=== PATIENT | female | born 1960 | race Caucasian/White ===

== ENCOUNTER 2019-06-23 18:16 | Inpatient (IN) ==
--- NOTE | 2019-06-23 18:59 | Emergency Department Note ---
Seizure HPI - General Chief Complaint: Seizure Stated Complaint: seizures Time Seen by Provider: 06/23/19 18:57 Source: patient Mode of arrival: ambulatory Limitations: no limitations - History of Present Illness HPI Narrative: Patient is brought in by ambulance with history of seizures home. She does have a history of seizure disorder according the patient and her . According to old records however seizure has never been documented. She may have pseudoseizures or stress-induced seizures. She does state that when she gets stressed that she has extra seizures. Today she was on the computer she was standing up from a chair and she found herself in another chair when she woke up. Came in and called the EMS. And she was complaining of left-sided hip pain. She is also complaining of right-sided hip pain but she is moving the right leg very well up. Was unable to stand and walk for EMS and she was given fentanyl by the medics en route to the hospital. Currently she does have a history of seizure disorder, she has breakthrough seizures associated with stress and she believes she fell on a hard chair. Either way the found her in the chair complaining of hip pain. - Related Data Home Medications Medication Instructions Recorded Confirmed CBD Oil 1 appful .ROUTE DAILY 05/20/17 06/23/19 senna leaves (bulk) 1 each PO PRN PRN 02/12/18 06/23/19 thyroid (pork) 60 mg tablet 75 mg PO QDAY 05/29/19 06/23/19 Cetirizine HCl [Zyrtec] 10 mg PO DAILY 06/23/19 06/23/19 PHENobarbital [Phenobarbital] 110 mg PO ONCE 06/23/19 06/23/19 Previous Rx's Medication Instructions Recorded albuterol sulfate 90 mcg/actuation 2 puff INHALATION Q6H PRN #1 each 03/10/18 breath activated powder inhaler albuterol sulfate HFA 90 2 puff INHALATION Q6H PRN #8.5 g 05/29/19 mcg/actuation aerosol inhaler Allergies Allergy/AdvReac Type Severity Reaction Status Date / Time aspirin Allergy Unknown Wheezing Verified 06/23/19 18:22 [place] [CORN] Allergy Unknown WHEEZING Verified 06/23/19 18:22 hydrocodone Allergy Unknown Verified 06/23/19 18:22 thyroid, pork Allergy Unknown Verified 09/04/19 18:22 [From [place] Thyroid] NSAIDS (Non-Steroidal AdvReac Mild AFTER 3-4 Verified 06/23/19 18:22 Anti-Inflamma DAYS, [NSAIDS] AFFECTS ASTHMA APPLES Allergy Unknown WHEEZING Uncoded 09/21/18 10:37 From GARLIC OIL Allergy Unknown WHEEZING Uncoded 09/21/18 10:37 STRAWBERRIES Allergy Unknown UNKNOWN Uncoded 09/21/18 10:37 TROUT Allergy Unknown WHEEZING Uncoded 09/21/18 10:37 TUNA Allergy Unknown WHEEZING Uncoded 09/21/18 10:37 Review of Systems All systems ED: reviewed and negative except as stated. Constitutional: Denies: fever, chills Eyes: Denies: eye pain ENT ED: Reports: other (she did bite the left side of her tongue.). Denies: ear pain, throat pain, dental pain Cardiovascular: Denies: palpitations, dyspnea on exertion Respiratory: Denies: shortness of breath Gastrointestinal: Denies: vomiting Musculoskeletal: Reports: other (left-sided hip pain also an abrasion over the left elbow.) Integumentary: Denies: rash Neurological: Reports: weakness. Denies: headache Past Medical History - Past Medical History Source: nursing notes reviewed Medical history: Reports: asthma, cancer (throat), migraine, seizures, thyroid disease Psychiatric history: Reports: anxiety MOLD CHANGER history: Reports: non-contributory Surgical history ED: Reports: hysterectomy (Has ovaries), orthopedic, other Family history: Reports: non-contributory - Social History smoking status: Never smoker Alcohol use: Reports: None Drug use: Reports: marijuana ("medical marijuana oils daily") Physical Exam Limitations: no limitations General appearance: alert, grimacing, in no apparent distress Head: atraumatic, normocephalic, normal inspection Eye: Present: normal appearance, PERRL, EOMI. Absent: conjunctival injection, nystagmus ENT: Present: normal exam, normal oropharynx, mucous membranes moist, TM's nor mal bilaterally, normal external ear exam Neck: Present: normal inspection, full ROM, trachea midline. Absent: tenderness, meningismus, lymphadenopathy, thyromegaly Chest: Present: normal inspection, symmetric chest wall rise. Absent: tenderness, rash Respiratory: Present: normal lung sounds bilaterally. Absent: respiratory distress, rales/crackles, wheezes, stridor, accessory muscle use Cardiovascular: Present: regular rate, normal rhythm, normal heart sounds Abdominal: Present: soft, normal bowel sounds. Absent: distention, tenderness, guarding, rebound Extremities: Present: normal inspection, full ROM, tenderness, other (she can lift the left leg but is complaining of pain to the left medial groin region, also left lateral trochanter.). Absent: joint swelling, cyanosis, clubbing Back: Present: normal inspection. Absent: CVA tenderness (R), CVA tenderness (L), L-S tenderness, muscle spasm, vertebral tenderness Neurological: Present: alert, oriented X3, CN II-XII intact Psychiatric: Present: normal affect Skin: Present: warm, dry, normal color. Absent: rash, cyanosis, diaphoresis, erythema Course - Reevaluation(s) Reevaluation #1: Culture was verified by CT scanning of. At this point she will be admitted by Dr. Worley. She did not have an acetabular fracture. Dr. Nino was contacted for consult. Vital Signs Temperature 98.4 F 06/23/19 18:17 Pulse Rate 60 06/23/19 18:17 Respiratory Rate 18 06/23/19 18:17 Pulse Oximetry (%) 94 06/23/19 18:17 Temperature 98.4 F 06/23/19 18:17 Pulse Rate 84 06/23/19 22:09 Respiratory Rate 21 06/23/19 22:09 Blood Pressure 119/80 06/23/19 22:01 Pulse Oximetry (%) 100 06/23/19 22:09 Seizure - MDM Narrative Medical decision making narrative: X-rays reviewed and she does appear to have a fracture of the superior pubic ramus on the right also inferior pubic ramus on the left. We did order a CT scan, consultation with Dr. Worley for hospitalization, observation at this point we will also contact the orthopedic doctor environmental conflict manager Dr. Nino regarding this fracture. CT scan was recommended by the stat read radiologist - Lab Data Lab results reviewed: Yes I reviewed the patient's lab results. Result diagrams: 06/23/19 19:12 06/23/19 19:12 Lab Results 06/23/19 06/23/19 06/23/19 Range/Units 19:12 19:12 20:22 WBC 10.9 (4.5-11.0) K/mcL RBC 4.20 (4.00-5.20) M/mcL Hgb 12.9 (12.0-15.0) g/dL Hct 37.9 (36.0-48.0) % MCV 90.1 (80.0-100.0) fL MCH 30.6 (26.0-34.0) pg MCHC 34.0 (31.0-36.0) g/dL RDW 13.3 (11.5-14.5) % Plt Count 219 (140-440) K/mcL MPV 8.2 (7.4-10.4) fL Gran % 86.1 H (38.0-78.0) % Lymph % (Auto) 5.8 L (15.5-49.0) % Dukes % (Auto) 5.4 (1.0-12.0) % Eos % (Auto) 2.3 (0.0-7.0) % Baso % (Auto) 0.4 (0.0-2.0) % Gran # 9.4 H (1.8-8.0) K/mcL Lymph # (Auto) 0.6 L (1.5-4.8) K/mcL Dukes # (Auto) 0.6 (0.1-0.9) K/mcL Eos # (Auto) 0.3 (0.0-0.7) K/mcL Baso # (Auto) 0 (0.0-0.3) K/mcL Sodium 141 (133-145) mmol/L Potassium 3.8 (3.3-5.1) mmol/L Chloride 103 (96-108) mmol/L Carbon Dioxide 25 (22-30) mmol/L Anion Gap 13.0 (8-16) BUN 11 (8-23) mg/dl Creatinine 0.7 (0.6-1.1) mg/dl GFR Calculation 94 Glucose 117 H (70-105) mg/dL Calcium 9.4 (8.6-10.4) mg/dl Magnesium 1.8 (1.6-2.5) mg/dL Total Bilirubin 0.3 (0.0-1.0) mg/dL AST 20 (0-37) U/l ALT 15 (0-40) U/l Alkaline Phosphatase 60 (39-117) U/L C-Reactive Protein < 0.3 (0.0-0.8) mg/dl Total Protein 7.0 (5.9-8.4) gm/dL Albumin 4.4 (3.2-5.2) gm/dL Globulin 2.6 (2.2-3.7) gm/dL Albumin/Globulin Ratio 1.7 (1.0-2.3) Urine Color Yellow Urine Appearance Clear Urine pH 7.0 (5.0-9.0) Ur Specific [place] 1.013 (1.000-1.035) Urine Protein Neg (NEG) mg/dL Urine Glucose (UA) Negative (NEG) mg/dL Urine Ketones Neg (NEG) mg/dL Urine Occult Blood Neg (<0.03) mg/dL Urine Nitrate Neg (NEG) Urine Bilirubin Neg (NEG) mg/dL Urine Urobilinogen Neg (NEG) mg/dL Ur Leukocyte Esterase Neg (NEG) /uL Phenobarbital 17.6 ug/mL - Radiology Data Radiology results reviewed: Yes I reviewed the patient's radiology results. Disposition Pt seen by DISTILLERY MILLER HELPER/PA only: No Clinical Impression: Bilateral pubic rami fractures Disposition: Xfer As Inpt ([facility]) Condition: Fair Referrals: No,PCP [Primary Care Provider] -
[2019-06-23] MEDS ORDERED: LACTATED RINGERS 1,000 ML IV ONE (19:01)
[2019-06-23] MEDS ORDERED: HYDROmorphone 2 MG/ML VIAL IV ONE ×3 (19:02→21:55)
[2019-06-23] MEDS ORDERED: LORazepam 2 MG/ML VIAL IV ONE (19:02)
[2019-06-23 19:53] LABS: Basophils # (Auto) 0 K/mcL (0.0-0.3); Basophils % (Auto) 0.4 % (0.0-2.0); Eosinophils # (Auto) 0.3 K/mcL (0.0-0.7); Eosinophils % (Auto) 2.3 % (0.0-7.0); Granulocytes % (Auto) 86.1 % (38.0-78.0); Hematocrit 37.9 % (36.0-48.0); Hemoglobin 12.9 g/dL (12.0-15.0); Lymphocytes # (Auto) 0.6 K/mcL (1.5-4.8); Lymphocytes % (Auto) 5.8 % (15.5-49.0); Mean Cell Volume 90.1 fL (80.0-100.0); Mean Platelet Volume 8.2 fL (7.4-10.4); Monocytes # (Auto) 0.6 K/mcL (0.1-0.9); Monocytes % (Auto) 5.4 % (1.0-12.0); Platelet Count 219 K/mcL (140-440); Red Cell Distribution Width 13.3 % (11.5-14.5); WBC 10.9 K/mcL (4.5-11.0)
[2019-06-23] MEDS ORDERED: oxyCODONE/APAP 5/325MG TABLET PO ONE (20:00)
[2019-06-23] MEDS ORDERED: ACETAMINOPHEN 325 MG TABLET PO ONE (20:01)
[2019-06-23] MEDS ORDERED: oxyCODONE HCL 5 MG TABLET PO ONE (20:04)
[2019-06-23 20:10] LABS: ALT/SGPT 15 U/l (0-40); AST/SGOT 20 U/l (0-37); Albumin 4.4 gm/dL (3.2-5.2); Albumin/Globulin Ratio 1.7 (1.0-2.3); Alkaline Phosphatase 60 U/L (39-117); Bilirubin,Total 0.3 mg/dL (0.0-1.0); Blood Urea Nitrogen 11 mg/dl (8-23); C-Reactive Protein < 0.3 mg/dl (0.0-0.8); Calcium 9.4 mg/dl (8.6-10.4); Carbon Dioxide 25 mmol/L (22-30); Chloride 103 mmol/L (96-108); Globulin 2.6 gm/dL (2.2-3.7); Glomerular Filtration Rate 94; Glucose 117 mg/dL (70-105)
[2019-06-23 21:01] LABS: Appearance,Urine CLEAR; Bilirubin,Urine NEG (NEG); Color,Urine YELLOW; Glucose,Urine (UA) NEGATIVE (NEG); Ketones,Urine NEG (NEG); Leukocyte Esterase,Urine NEG /uL (NEG); Nitrate,Urine NEG (NEG); Protein,Urine NEG (NEG); Specific Gravity,Urine 1.013 (1.000-1.035); Urine Blood NEG mg/dL (<0.03); Urobilinogen,Urine NEG (NEG)
[2019-06-23] MEDS ORDERED: IPRATROPIUM/ALBUTEROL 3 ML AMPUL.NEB NEB ONE (21:55)
[2019-06-23] MEDS ORDERED: MAGNESIUM SULFATE 2 GM/50 ML BAG IV PRN (22:39)
[2019-06-23] MEDS ORDERED: traMADol 50 MG TABLET PO PRN (22:39)
[2019-06-23] MEDS ORDERED: ALBUTEROL SULFATE INHALATION PRN (22:39)
[2019-06-23] MEDS ORDERED: ACETAMINOPHEN 1,000 MG/100 ML BOTTLE IV PRN (22:39)
[2019-06-23] MEDS ORDERED: POTASSIUM CHLORIDE 20 MEQ PACKET PO PRN (22:39)
[2019-06-23] MEDS ORDERED: MAGNESIUM HYDROXIDE 30 ML ORAL.SUSP PO PRN (22:39)
[2019-06-23] MEDS ORDERED: BISACODYL 10 MG SUPP.RECT PR PRN (22:39)
[2019-06-23] MEDS ORDERED: ACETAMINOPHEN 325 MG TABLET PO PRN (22:39)
[2019-06-23] MEDS ORDERED: traZODone HCL 50 MG TABLET PO PRN (22:39)
[2019-06-23] MEDS ORDERED: ALBUTEROL SULFATE 1 PUFF INHALER INH PRN (22:39)
[2019-06-23] MEDS ORDERED: HYDROcodone/APAP 5/325MG TABLET PO PRN (22:39)
[2019-06-23] MEDS ORDERED: ONDANSETRON 4 MG/2 ML VIAL IV PRN (22:39)
[2019-06-23] MEDS ORDERED: POLYETHYLENE GLYCOL 3350 17 GM PACKET PO PRN (22:39)
[2019-06-23] MEDS ORDERED: PHENOBARBITAL PO SCH (22:39)
[2019-06-23] MEDS: 0.9 % SODIUM CHLORIDE 1,000 ML IV SCH (23:00)
[2019-06-23] MEDS: 0.9 % SODIUM CHLORIDE 10 ML SYRINGE IV SCH (23:00)
[2019-06-24] MEDS ORDERED: HYDROmorphone 2 MG/ML VIAL ONE ×2 (00:18→04:42)
--- NOTE | 2019-06-24 02:56 | XRay Report ---
CLINICAL INFORMATION: fall COMPARISON: None. FINDINGS: Acute minimally displaced fracture to the right superior pubic ramus and left inferior pubic rami appreciated. Both SI and hip joints show only minimal degenerative change. Soft tissues are normal. IMPRESSION: Acute minimally displaced fractures of the right superior and left inferior pubic rami. Interpreted and Authenticated by: Garett Darden 06/24/19
--- NOTE | 2019-06-24 04:10 | Cat Scan Report ---
CLINICAL INFORMATION: Trauma COMPARISON: Chest, abdomen and pelvic CT 08/08/2016. TECHNIQUE: 0.625 mm helical slices were obtained from the mid L4 through the subtrochanteric regions. Following reconstruction, 2.5 mm sagittal, coronal and axial reformations were processed. The exam was reviewed in bone and soft tissue windows. The exam was performed using radiation dose optimization techniques including, but not limited to, automated exposure control, adjustment of mA and/or kV according to patient size and use of iterative reconstruction technique. FINDINGS: Bone windows show acute minimally displaced oblique fracture through the right superior pubic ramus/ pubic symphysis junction and the right inferior pubic ramus/ pubic symphysis junction. There is also an obliquely oriented fractures of the left superior pubic ramus root and extends into the anterior aspect of the medial acetabular wall. This results in mild acetabular incongruity. A vertically oriented fracture extends through the lateral left sacral ala. Nondisplaced oblique fracture left inferior pubic ramus appreciated Both SI and hip joints are normal in width alignment without arthritic change. There is mild edema in the right obturator muscle group, adjacent to the pubic rami fractures, and very small amounts of extraperitoneal hemorrhage in the right perivesical region. The urinary bladder is unremarkable. Hysterectomy changes noted. The visualized small and large bowel are unremarkable. IMPRESSION: 1. Mildly comminuted oblique fracture through the left superior pubic ramus root with extension into the anterior aspect of medial left acetabular wall. This results in slight congruity of the left hip joint. 2. Obliquely oriented minimally displaced fractures through the right superior and inferior pubic rami near the pubic symphysis junctions. Nondisplaced acute fracture left inferior pubic ramus 3. Vertically oriented nondisplaced fracture - lateral left sacral ala. 4. Mild contusion right obturator muscle group adjacent to the pubic pubic rami fracture with minimal hemorrhage in the extravesical soft tissues. Interpreted and Authenticated by: Garett Darden 06/24/19
[2019-06-24 05:26] LABS: Hematocrit 31.8 % (36.0-48.0); Hemoglobin 10.9 g/dL (12.0-15.0); Mean Cell Volume 90.6 fL (80.0-100.0); Mean Corpuscular HGB Conc 34.3 g/dL (31.0-36.0); Mean Platelet Volume 8.3 fL (7.4-10.4); Platelet Count 165 K/mcL (140-440); RBC 3.51 M/mcL (4.00-5.20); Red Cell Distribution Width 13.4 % (11.5-14.5); WBC 6.7 K/mcL (4.5-11.0)
[2019-06-24 05:52] LABS: ALT/SGPT 11 U/l (0-40); AST/SGOT 17 U/l (0-37); Albumin 3.8 gm/dL (3.2-5.2); Albumin/Globulin Ratio 1.7 (1.0-2.3); Alkaline Phosphatase 50 U/L (39-117); Bilirubin,Direct < 0.2 mg/dL (0.0-0.3); Bilirubin,Total 0.3 mg/dL (0.0-1.0); Blood Urea Nitrogen 12 mg/dl (8-23); Calcium 8.6 mg/dl (8.6-10.4); Carbon Dioxide 25 mmol/L (22-30); Chloride 103 mmol/L (96-108); Globulin 2.2 gm/dL (2.2-3.7); Glomerular Filtration Rate 94; Glucose 97 mg/dL (70-105); Lactate Dehydrogenase 241 U/L (94-250); Phosphorous 3.5 mg/dL (2.7-4.5); Triglycerides 58 mg/dl (<150); Uric Acid 5.7 mg/dL (2.5-8.0)
[2019-06-24 06:20] LABS: Band Neutrophils % 1 % (0-10); Eosinophils % (Manual) 2 % (0-7); Lymphocytes % 10 % (15-49); Monocytes % (Manual) 2 % (1-12); Platelet Estimate NORMAL (NORMAL); RBC Morphology NORMAL (NORMAL); Segmented Neutrophils % 85 % (38-78)
[2019-06-24] MEDS: 0.9 % SODIUM CHLORIDE 10 ML SYRINGE IV SCH ×3 (07:30→21:13)
[2019-06-24] MEDS: oxyCODONE HCL 5 MG TABLET PO PRN ×2 (07:43→12:02)
[2019-06-24] MEDS: HYDROmorphone 2 MG/ML VIAL IV PRN ×3 (07:43→19:08)
[2019-06-24] MEDS: THYROID, PORK 60 MG TABLET PO SCH (07:57)
--- NOTE | 2019-06-24 08:04 | Internal Med History&Physical ---
Medical - H&P: [facility] Patient information: Note initiated : 06/23/19 at 23:48 pm Service Date, if different from initiated Date: [] Patient: Naomi Iyer 59 y/o F admitted on 06/23/19 for seizures. Chief Complaint: [] Chief complaint: Seizure and fall History of present illness: Ms. Iyer is a 59 year old F with known history of seizure disorder who presents to ER with her after experiencing a seizure and fell resulting in injuries to her hip. The fall was unwitnessed however her found her on the chair. Patient does not recollect any events except that she woke up in a chair severe pain around the hip. Initial work-up was consistent with pelvic fractures on CT including right and left superior ramus to the acetabular wall along with left sacral ala. Orthopedics was consulted and advised conservative management. Biochemical profile was unremarkable. Phenobarbital level 17.6. Subsequently hospitalist service was consulted Patient has a known history of seizure disorder and intermittently experiences seizures. She follows up with urology at [facility]. She also carries a complex history of head and neck 32 sessions of radiation 2016. She does not have a primary care physician at this time. Other than that patient denies headache, lightheadedness, chest pain, shortness of breath. She is verbal and appears nondistressed when not moving. Pain is exacerbated with minimal movement. She denies hematuria, unilateral weakness or incontinence. 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 Castillo, [facility] Influenza (Acute 11/15/14) Hypothyroidism, acquired (Acute) Head injury, closed, without LOC (Acute 07/28/13) Closed head injury with left forehead abrasion, several due to seizures Displacement of intervertebral disc without myelopathy (Acute) Degeneration of thoracic or thoracolumbar intervertebral disc (Acute) Wellness examination (Acute) wellness with colonoscopy, mammo due May 2017 Asthma (Resolved) Bronchitis, acute (Resolved) Epilepsy (Resolved) Grand Mal status/Partial Mild acid reflux (Resolved) Surgical History History of hysterectomy (Acute ~1987) Ovaries remain H/O foot surgery (Chronic ~2011) Nerve removed from left foot History of surgery (Chronic ~2011) ? 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 smoking status: Former smoker alcohol intake frequency: does not drink substance use type: marijuana, former substance user additional history: marijuana is medicinal - CBD oil to help with epilepsy Medical - H&P: Meds Home Medications Medication Instructions Recorded Confirmed Type CBD Oil 1 appful .ROUTE DAILY 05/20/17 06/23/19 History senna leaves (bulk) 1 each PO PRN PRN 02/12/18 06/23/19 History albuterol sulfate 90 mcg/actuation 2 puff INHALATION Q6H PRN #1 each 03/10/18 06/23/19 Rx breath activated powder inhaler albuterol sulfate HFA 90 2 puff INHALATION Q6H PRN #8.5 g 05/29/19 06/23/19 Rx mcg/actuation aerosol inhaler thyroid (pork) 60 mg tablet 75 mg PO QDAY 05/29/19 06/23/19 History Cetirizine HCl [Zyrtec] 10 mg PO DAILY 06/23/19 06/23/19 History PHENobarbital [Phenobarbital] 15 mg PO DAILY@199906/24/19 06/24/19 History PHENobarbital [Phenobarbital] 100 mg PO DAILY@199906/24/19 06/24/19 History Allergies Allergy/AdvReac Type Severity Reaction Status Date / Time [place] [CORN] Allergy Unknown WHEEZING Verified 06/23/19 18:22 aspirin AdvReac Severe Wheezing Verified 06/24/19 05:51 hydrocodone AdvReac Mild Itching Verified 06/24/19 09:31 NSAIDS (Non-Steroidal AdvReac Mild AFTER 3-4 Verified 06/23/19 18:22 Anti-Inflamma DAYS, [NSAIDS] AFFECTS ASTHMA APPLES Allergy Severe WHEEZING Uncoded 06/24/19 09:31 From GARLIC OIL Allergy Severe WHEEZING Uncoded 06/24/19 09:31 TROUT Allergy Severe WHEEZING Uncoded 06/24/19 09:31 TUNA Allergy Severe WHEEZING Uncoded 06/24/19 09:31 STRAWBERRIES Allergy Unknown UNKNOWN Uncoded 09/21/18 10:37 Medical - H&P: Exam - Constitutional Vitals: Temp Pulse Resp BP Pulse Ox 98.5 F 72 18 107/68 97 06/24/19 04:00 06/24/19 04:00 06/24/19 04:00 06/24/19 04:00 06/24/19 04:00 General appearance: no acute distress Exam: Alert oriented Head normocephalic eye movement symmetrical oral cavity dry No ear nose discharge No lymphadenopathy S1-S2 regular rhythm no murmur diminished breath sounds bases Abdomen soft Significant tenderness around the hip and lower abdomen No hematuria Lower extremity no cyanosis clubbing no joint swelling Skin no suspicious lesion Psych alert with flight of ideas Neuro nonfocal Medical - H&P: Reslt - Labs CBC & Chem 7: 06/24/19 03:42 06/24/19 03:42 Labs: Short CBC 06/23/19 06/24/19 Range/Units 19:12 03:42 WBC 10.9 6.7 (4.5-11.0) K/mcL Hgb 12.9 10.9 L (12.0-15.0) g/dL Hct 37.9 31.8 L (36.0-48.0) % Plt Count 219 165 (140-440) K/mcL BMP 06/23/19 06/24/19 19:12 03:42 Sodium 141 138 Potassium 3.8 4.1 Chloride 103 103 Carbon Dioxide 25 25 BUN 11 12 Creatinine 0.7 0.7 Glucose 117 H 97 Calcium 9.4 8.6 Liver Function 06/23/19 06/24/19 Range/Units 19:12 03:42 Total Bilirubin 0.3 0.3 (0.0-1.0) mg/dL Direct Bilirubin < 0.2 (0.0-0.3) mg/dL GGT 27 (5-36) U/L AST 20 17 (0-37) U/l ALT 15 11 (0-40) U/l Alkaline Phosphatase 60 50 (39-117) U/L Albumin 4.4 3.8 (3.2-5.2) gm/dL Urine 06/23/19 Range/Units 20:22 Urine Color Yellow Urine Appearance Clear Urine pH 7.0 (5.0-9.0) Ur Specific [place] 1.013 (1.000-1.035) Urine Protein Neg (NEG) mg/dL Urine Glucose (UA) Negative (NEG) mg/dL Medical - H&P: A/P (1) Pelvic fracture Current visit: Yes Status: Acute * Pelvic fracture-multiple/traumatic. Orthopedic consulted. Await further recommendations. Continue pain management/gradual weightbearing/PT OT * History of seizure disorder continue phenobarbitone * History of COPD continue bronchodilators * Hypothyroidism continue thyroid supplements * Full code * Prophylaxis heparin Plan * Orthopedics consult * Seizure watch * Pain management * PT OT as tolerated * Prior medical condition management as above * Inpatient admission, anticipate a minimum of 2 midnight hospitalization in light of multiple areas of pelvic fracture * Case management to coordinate SNF transfer Medical - H&P: Qual - VTE Deep Vein Thrombosis/Pulmonary Embolism Present on Admission: No
[2019-06-24] MEDS: IPRATROPIUM/ALBUTEROL 3 ML AMPUL.NEB NEB PRN (08:19)
[2019-06-24] MEDS: CYANOCOBALAMIN (VITAMIN B-12) 500 MCG TABLET PO SCH ×2 (09:36→20:07)
[2019-06-24] MEDS: CETIRIZINE 10 MG TABLET PO SCH (09:36)
[2019-06-24] MEDS: MULTIVIT,THER IRON,CA,FA & MIN 1 TABLET PO SCH (09:36)
[2019-06-24] MEDS: HEPARIN 5,000 UNIT/ML VIAL SQ SCH ×2 (09:36→20:06)
[2019-06-24] MEDS: DOCUSATE SODIUM 100 MG CAPSULE PO SCH ×2 (09:36→20:07)
[2019-06-24] MEDS: FOLIC ACID 1 MG TABLET PO SCH (09:37)
[2019-06-24] MEDS: THIAMINE 100 MG TABLET PO SCH (09:37)
--- NOTE | 2019-06-24 09:44 | History and Physical Report ---
DATE OF ADMISSION: 06/23/2019 CHIEF COMPLAINT: Bilateral hip pain. HISTORY OF PRESENT ILLNESS: The patient presented to the ED after reporting a seizure where she says she sat down onto a hard chair very fast and when she came to from her seizure, she felt significant bilateral hip pain, left worse than right. She was brought to the ED by her where CT scan was obtained, which did show bilateral pelvis fractures. Orthopedics was consulted. PAST MEDICAL HISTORY: Anemia, anxiety, arthritis, asthma, bronchitis, history of HPV, cancer of the head and neck, degenerative thoracic and thoracolumbar intervertebral disc, epilepsy, closed head injury, other joint pain, migraines, acid reflux, osteoporosis. PAST SURGICAL HISTORY: She does have history of hysterectomy, foot injury in 2011-Dr. Webster. SOCIAL HISTORY: She does report of history of tobacco use. She lives at home with her . FAMILY HISTORY: Mother, father and sister all had arthritis; father had bladder cancer; maternal grandmother had cardiovascular disease; two grandmothers had dementia as well as diabetes; daughter and mother hypertension. She also has a family history of seizures, including in a cousin and uncles. ALLERGIES: HYDROCODONE, NSAIDS, ARMORTHYROID. PHYSICAL EXAMINATION: GENERAL: The patient was alert and oriented x3. She has appropriate mood and affect. VITAL SIGNS: Most recent temperature is 98.5, pulse rate 72, respiratory rate 18, blood pressure 107/68, pulse ox 97 on room air. EXTREMITIES: She did have palpable tibial pulses bilaterally. Full active and passive range of motion of ankles bilaterally, plantar flexion, dorsiflexion, inversion, eversion as well as 5/5 strength in those planes. On the right side she did have full active and passive knee flexion/extension as well as a painful hip flexion. Hip internal rotation was painful. In the left lower extremity she had full knee extension, limited knee flexion as well as limited hip flexion and definite painful passive internal rotation of the hip. She also had pain to palpation over the pelvis including the ASIS bilaterally as well as the greater trochanters. RADIOLOGIC STUDIES: Showed a left intra-articular acetabular fracture as well as a bilateral pelvic rami fracture. LABORATORY DATA: Hemoglobin 10.9, hematocrit 31.8 . PLAN: At this point, injuries appear to be nonoperative. We will consult with a traumatologist in [place] for second opinion. However, at this point, patient will remain nonweightbearing on the left lower extremity. She will likely need to be doing this for 6 weeks. She may weightbear as tolerated on the right lower extremity. Assuming her fracture is healed she may return to activities as tolerated after 6 to 8 weeks; however, if she continues to have pain, possible surgery may be warranted at that time. She will follow up at [facility] in 2 to 4 weeks for a recheck. She will call with any questions or concerns. JULIETTE:chen Job ID: [id number] Doc ID: [id number] Cody Bautista PA-C
--- NOTE | 2019-06-24 15:40 | Internal Med Progress Note ---
Medical - PN: Subj Patient information: Note initiated : 06/24/19 at 3:40 pm Service Date, if different from initiated Date: [] Patient: Naomi Iyer 59 y/o F admitted on 06/23/19 for seizures. Chief Complaint: [] Interval history: Ms. Iyer is a 59 year old F with known history of seizure disorder who presents to ER with her after experiencing a seizure and fell resulting in injuries to her hip. The fall was unwitnessed however her found her on the chair. Patient does not recollect any events except that she woke up in a chair severe pain around the hip. Initial work-up was consistent with pelvic fractures on CT including right and left superior ramus to the acetabular wall along with left sacral ala. Orthopedics was consulted and advised conservative management. Biochemical profile was unremarkable. Phenobarbital level 17.6. Subsequently hospitalist service was consulted Patient has a known history of seizure disorder and intermittently experiences seizures. She follows up with urology at [place]. She also carries a complex history of head and neck 32 sessions of radiation 2017. She does not have a primary care physician at this time. Other than that patient denies headache, lightheadedness, chest pain, shortness of breath. She is verbal and appears nondistressed when not moving. Pain is exacerbated with minimal movement. She denies hematuria, unilateral weakness or incontinence. 06/24-patient experienced a tonic-clonic seizure lasting for couple of minutes with postictal phase. Continuing on phenobarbital. On pain management. Await orthopedic recommendations regarding pelvis fracture. Transfer to ICU for close neuro watch. Will consult neurology additional seizures noted for antiepileptic regimen. - Constitutional Vitals: Vital Signs Temp Pulse Resp BP Pulse Ox 98.6 F 86 18 127/79 96 06/24/19 13:00 06/24/19 13:00 06/24/19 13:00 06/24/19 13:00 06/24/19 13:00 Period Temp Pulse Resp BP Sys/Singleton Pulse Ox Last 24 Hr 97.7 F-98.8 F 60-90 10-23 107-127/68-105 92-100 Intake and Output 06/24/19 06/24/19 06/24/19 05:59 13:59 21:59 Intake Total 800 200 Output Total 175 500 800 Balance 625 -300 -800 Weight 146 lb 146 lb Patient Weight 09/06/19 05:59 Weight 146 lb Intake & Output: Intake & Output 06/24/19 06/24/19 06/24/19 05:59 13:59 21:59 Intake Total 800 200 Output Total 175 500 800 Balance 625 -300 -800 Weight 146 lb 146 lb Intake: Oral 800 200 Output: Void Amount 175 500 800 Other: Urine Appearance Cloudy Clear Urine Color Dark Yellow Straw Straw Urine Odor Normal Normal General appearance: no acute distress Exam: Patient is alert and respond to commands morning. Remained pain-free however experienced seizure Postictal for a short while Nonlabored breathing No telemetry events no lymphedema Medical - PN: Obj Da - Labs CBC & Chem 7: 06/24/19 03:42 06/24/19 03:42 Labs: Abnormal Lab Results 06/24/19 06/23/19 06/23/19 03:42 19:12 19:12 RBC 3.51 L Hgb 10.9 L Hct 31.8 L Gran % 86.1 H Lymph % (Auto) 5.8 L Gran # 9.4 H Lymph # (Auto) 0.6 L Seg Neutrophils % 85 H Lymphocytes % 10 L Glucose 117 H Meds: Medications Acetaminophen (Tylenol) 650 mg PO Q4-6HP PRN PRN Reason: PAIN/FEVER > 101 Albuterol Sulfate (Ventolin) 2 puff INH Q6H PRN PRN Reason: cough, shortness of breath, wheezing Albuterol/Ipratropium (Duoneb) 3 ml NEB Q4HP PRN PRN Reason: Shortness Of Breath Last Admin: 06/24/19 08:19 Dose: 3 ml Documented by: Bisacodyl (Dulcolax) 10 mg SD Q2-3DAYS PRN PRN Reason: Constipation Cetirizine HCl (Zyrtec) 10 mg PO DAILY [facility] Last Admin: 06/24/19 09:36 Dose: 10 mg Documented by: Cyanocobalamin (Vitamin B-12) 1,000 mcg PO BID [facility] Stop: 06/28/19 21:01 Last Admin: 06/24/19 09:36 Dose: 1,000 mcg Documented by: Docusate Sodium (Colace) 100 mg PO BID [facility] Last Admin: 06/24/19 09:36 Dose: 100 mg Documented by: Folic Acid (Folic Acid) 1 mg PO DAILY [facility] Last Admin: 06/24/19 09:37 Dose: 1 mg Documented by: Heparin Sodium (Porcine) (Heparin) 5,000 unit SQ Q12 [facility] Last Admin: 06/24/19 09:36 Dose: 5,000 unit Documented by: Hydromorphone HCl (Dilaudid) 0 mg IV Q4HP PRN PRN Reason: PAIN LEVEL > 6 Last Admin: 06/24/19 14:49 Dose: 0.5 mg Documented by: Magnesium Sulfate (Magnesium Sulfate) 2 gm in 50 mls @ 50 mls/hr IV UD PRN PRN Reason: MG = or < 1.7 Last Admin: 06/24/19 12:56 Dose: 50 mls/hr Documented by: Sodium Chloride (Sodium Chloride 0.9%) 1,000 mls @ 50 mls/hr IV .Q20H [facility] Stop: 06/26/19 10:38 Last Admin: 06/23/19 23:00 Dose: 50 mls/hr Documented by: Acetaminophen (Ofirmev) 1,000 mg in 100 mls @ 200 mls/hr IV Q6HP PRN PRN Reason: PAIN/FEVER > 101 Iron Carb/Multivit/[place]/Folic Acid (Multivitamin W/Minerals) 1 tab PO DAILY [facility] Last Admin: 06/24/19 09:36 Dose: 1 tab Documented by: Lorazepam (Ativan) 2 mg IV Q4HP PRN PRN Reason: Seizures Magnesium Hydroxide (Milk Of Magnesia) 30 ml PO HSP PRN PRN Reason: Constipation Ondansetron HCl (Zofran) 4 mg IV Q4-6HP PRN PRN Reason: Nausea And Vomiting Oxycodone HCl (Roxicodone) 5 mg PO Q4HP PRN PRN Reason: PAIN LEVEL 3-6 Last Admin: 06/24/19 12:02 Dose: 5 mg Documented by: Phenobarbital (Phenobarbital) 120 mg PO DAILY@2000 [facility] Polyethylene Glycol (Miralax) 17 gm PO DAILYP PRN PRN Reason: Constipation Potassium Chloride (Klor-Con) 40 meq PO DAILYP PRN PRN Reason: K+ < 3.5 Senna/Docusate Sodium (Senna Plus Tablet) 1 tab PO HS [facility] Sodium Chloride (Saline Flush) 10 ml IV Q8 [facility] Last Admin: 06/24/19 14:54 Dose: Not Given Documented by: Thiamine HCl (Vitamin B1) 100 mg PO DAILY [facility] Last Admin: 06/24/19 09:37 Dose: 100 mg Documented by: Thyroid (Thyroid) 75 mg PO QDAY [facility] Last Admin: 06/24/19 07:57 Dose: 75 mg Documented by: Tramadol HCl (Ultram) 50 mg PO Q4-6HP PRN PRN Reason: Pain Trazodone HCl (Desyrel) 50 mg PO HSP PRN PRN Reason: Insomnia Medical - PN: A/P - Time Spent With Patient Total time spent is greater than 50% in coordination of care (as documented) at patient's floor/unit and/or counseling patient: 25 - 35 minutes (1) Pelvic fracture Status: Acute Assessment and plan: * Generalized tonic-clonic seizure-continue phenobarbitone. Transfer to telemetry for close neuro check/seizure watch. Consult neurology for further seizures noted. * Pelvic fracture-multiple/traumatic. Orthopedic recommendations awaited. Continue pain management * History of COPD continue bronchodilators * Hypothyroidism continue thyroid supplements * Full code * Prophylaxis heparin Plan * Await orthopedic recommendations * Transfer to telemetry for close neuro checks and seizure watch * Pain management * PT OT as tolerated * Prior medical condition management as above * Discharge planning, anticipate SNF transfer on discharge Current Visit: Yes Medical - PN: Qual - VTE Deep Vein Thrombosis/Pulmonary Embolism Present on Admission: No
[2019-06-24] MEDS: 0.9 % SODIUM CHLORIDE 1,000 ML IV SCH (19:02)
[2019-06-24] MEDS: LORazepam 2 MG/ML VIAL IV PRN (19:08)
[2019-06-24] MEDS ORDERED: PHENobarbital 30 MG TABLET PO SCH (20:00)
[2019-06-24] MEDS ORDERED: SENNOSIDES/DOCUSATE SODIUM 1 TAB TABLET PO SCH (21:00)
[2019-06-25] MEDS: 0.9 % SODIUM CHLORIDE 10 ML SYRINGE IV SCH ×3 (05:19→20:06)
[2019-06-25 05:49] LABS: Hematocrit 29.3 % (36.0-48.0); Mean Corpuscular HGB Conc 34.2 g/dL (31.0-36.0); Mean Platelet Volume 8.5 fL (7.4-10.4); Platelet Count 140 K/mcL (140-440); RBC 3.26 M/mcL (4.00-5.20); Red Cell Distribution Width 13.5 % (11.5-14.5); WBC 5.5 K/mcL (4.5-11.0)
[2019-06-25 06:02] LABS: ALT/SGPT 10 U/l (0-40); AST/SGOT 20 U/l (0-37); Albumin 3.6 gm/dL (3.2-5.2); Albumin/Globulin Ratio 1.6 (1.0-2.3); Alkaline Phosphatase 51 U/L (39-117); Bilirubin,Direct < 0.2 mg/dL (0.0-0.3); Bilirubin,Total 0.4 mg/dL (0.0-1.0); Blood Urea Nitrogen 13 mg/dl (8-23); Calcium 8.3 mg/dl (8.6-10.4); Carbon Dioxide 24 mmol/L (22-30); Chloride 103 mmol/L (96-108); Globulin 2.3 gm/dL (2.2-3.7); Glomerular Filtration Rate 94; Glucose 87 mg/dL (70-105); Lactate Dehydrogenase 275 U/L (94-250); Phosphorous 3.4 mg/dL (2.7-4.5); Triglycerides 108 mg/dl (<150); Uric Acid 5.4 mg/dL (2.5-8.0)
[2019-06-25] MEDS: HYDROmorphone 2 MG/ML VIAL IV PRN (06:06)
[2019-06-25] MEDS: IPRATROPIUM/ALBUTEROL 3 ML AMPUL.NEB NEB PRN (06:14)
[2019-06-25] MEDS: THYROID, PORK 60 MG TABLET PO SCH (07:27)
[2019-06-25 08:31] LABS: Band Neutrophils % 3 % (0-10); Eosinophils % (Manual) 5 % (0-7); Hypochromasia 1+ (NONE SEEN); Lymphocytes % 9 % (15-49); Monocytes % (Manual) 9 % (1-12); Platelet Estimate NORMAL (NORMAL); RBC Morphology ABNORM (NORMAL); Segmented Neutrophils % 74 % (38-78)
[2019-06-25] MEDS: DOCUSATE SODIUM 100 MG CAPSULE PO SCH ×2 (09:18→20:06)
[2019-06-25] MEDS: FOLIC ACID 1 MG TABLET PO SCH (09:19)
[2019-06-25] MEDS: THIAMINE 100 MG TABLET PO SCH (09:20)
[2019-06-25] MEDS: MULTIVIT,THER IRON,CA,FA & MIN 1 TABLET PO SCH (09:20)
[2019-06-25] MEDS: CYANOCOBALAMIN (VITAMIN B-12) 500 MCG TABLET PO SCH ×2 (09:20→20:06)
[2019-06-25] MEDS: oxyCODONE HCL 5 MG TABLET PO PRN ×3 (09:24→20:13)
[2019-06-25] MEDS: CETIRIZINE 10 MG TABLET PO SCH (09:26)
[2019-06-25] MEDS: HEPARIN 5,000 UNIT/ML VIAL SQ SCH ×2 (09:27→20:05)
[2019-06-25] MEDS: LORazepam 2 MG/ML VIAL IV PRN ×2 (09:29→15:38)
--- NOTE | 2019-06-25 09:36 | Internal Med Progress Note ---
Medical - PN: Subj Patient information: Note initiated : 06/25/19 at 9:32 am Service Date, if different from initiated Date: [] Patient: Naomi Iyer a 59 y/o F admitted on 06/23/19 for seizures. Chief Complaint: [] Interval history: Ms. Iyer is a 59 year old F with known history of seizure disorder who presents to ER with her after experiencing a seizure and fell resulting in injuries to her hip. The fall was unwitnessed however her found her on the chair. Patient does not recollect any events except that she woke up in a chair severe pain around the hip. Initial work-up was consistent with pelvic fractures on CT including right and left superior ramus to the acetabular wall along with left sacral ala. Orthopedics was consulted and advised conservative management. Biochemical profile was unremarkable. Phenobarbital level 17.6. Subsequently hospitalist service was consulted Patient has a known history of seizure disorder and intermittently experiences seizures. She follows up with urology at [place]. She also carries a complex history of head and neck 32 sessions of radiation 2017. She does not have a primary care physician at this time. Other than that patient denies headache, lightheadedness, chest pain, shortness of breath. She is verbal and appears nondistressed when not moving. Pain is exacerbated with minimal movement. She denies hematuria, unilateral weakness or incontinence. 06/24-patient experienced a tonic-clonic seizure lasting for couple of minutes with postictal phase. Continuing on phenobarbital. On pain management. Await orthopedic recommendations regarding pelvis fracture. Transfer to ICU for close neuro watch. Will consult neurology additional seizures noted for antiepileptic regimen. 06/25-no overnight seizure. Patient is a total nonweightbearing as per orthopedics. Case management coordinating SNF transfer. However patient wanting to go home. Discussed with patient and the high risk involved including recurrent falls and worsening pain if patient chooses to discharge home. Transfer to medical floor. and patient made aware of discharge plan. Case management coordinating. - Constitutional Vitals: Vital Signs Temp Pulse Resp BP Pulse Ox 99.2 F H 75 14 117/82 100 06/25/19 05:00 06/25/19 05:00 06/25/19 05:00 06/25/19 05:00 06/25/19 05:00 Period Temp Pulse Resp BP Sys/Singleton Pulse Ox Last 24 Hr 97.7 F-100.2 F 70-100 14-22 110-128/68-92 89-100 Intake and Output 06/24/19 06/25/19 06/25/19 21:59 05:59 13:59 Intake Total 1500 Output Total 900 150 Balance 600 -150 Weight 149 lb 11.2 oz Intake & Output: Intake & Output 06/24/19 06/25/19 06/25/19 21:59 05:59 13:59 Intake Total 1500 Output Total 900 150 Balance 600 -150 Weight 149 lb 11.2 oz Intake: IV 1000 Sodium Chloride 0.9% 1,000 ml @ 1000 50 mls/hr IV .Q20H [facility] Rx#: [id number] Oral 500 Output: Void Amount 900 150 Other: Urine Appearance Clear Urine Color Straw Dark Yellow Urine Odor Normal Exam: Anxious Nonlabored breathing No telemetry Remains nonweightbearing Medical - PN: Obj Da - Labs CBC & Chem 7: 06/25/19 03:45 06/25/19 03:45 Labs: Abnormal Lab Results 06/25/19 06/25/19 06/24/19 03:45 03:45 03:42 RBC 3.26 L 3.51 L Hgb 10.0 L 10.9 L Hct 29.3 L 31.8 L Gran % Lymph % (Auto) Gran # Lymph # (Auto) Seg Neutrophils % 85 H Lymphocytes % 9 L 10 L RBC Morphology Abnorm A Hypochromasia 1+ A Glucose Calcium 8.3 L Lactate Dehydrogenase 275 H 06/23/19 06/23/19 19:12 19:12 RBC Hgb Hct Gran % 86.1 H Lymph % (Auto) 5.8 L Gran # 9.4 H Lymph # (Auto) 0.6 L Seg Neutrophils % Lymphocytes % RBC Morphology Hypochromasia Glucose 117 H Calcium Lactate Dehydrogenase Meds: Medications Acetaminophen (Tylenol) 650 mg PO Q4-6HP PRN PRN Reason: PAIN/FEVER > 101 Albuterol Sulfate (Ventolin) 2 puff INH Q6H PRN PRN Reason: cough, shortness of breath, wheezing Albuterol/Ipratropium (Duoneb) 3 ml NEB Q4HP PRN PRN Reason: Shortness Of Breath Last Admin: 06/25/19 06:14 Dose: 3 ml Documented by: Bisacodyl (Dulcolax) 10 mg [place] Q2-3DAYS PRN PRN Reason: Constipation Cetirizine HCl (Zyrtec) 10 mg PO DAILY [facility] Last Admin: 06/25/19 09:26 Dose: 10 mg Documented by: Cyanocobalamin (Vitamin B-12) 1,000 mcg PO BID [facility] Stop: 06/28/19 21:01 Last Admin: 06/25/19 09:20 Dose: 1,000 mcg Documented by: Docusate Sodium (Colace) 100 mg PO BID [facility] Last Admin: 06/25/19 09:18 Dose: 100 mg Documented by: Folic Acid (Folic Acid) 1 mg PO DAILY [facility] Last Admin: 06/25/19 09:19 Dose: 1 mg Documented by: Heparin Sodium (Porcine) (Heparin) 5,000 unit SQ Q12 [facility] Last Admin: 06/25/19 09:27 Dose: 5,000 unit Documented by: Hydromorphone HCl (Dilaudid) 0 mg IV Q4HP PRN PRN Reason: PAIN LEVEL > 6 Last Admin: 06/25/19 06:06 Dose: 0.5 mg Documented by: Magnesium Sulfate (Magnesium Sulfate) 2 gm in 50 mls @ 50 mls/hr IV UD PRN PRN Reason: MG = or < 1.7 Last Infusion: 06/24/19 13:50 Dose: 0 mls/hr Documented by: Sodium Chloride (Sodium Chloride 0.9%) 1,000 mls @ 50 mls/hr IV .Q20H [facility] Stop: 06/26/19 10:38 Last Admin: 06/24/19 19:02 Dose: 50 mls/hr Documented by: Acetaminophen (Ofirmev) 1,000 mg in 100 mls @ 200 mls/hr IV Q6HP PRN PRN Reason: PAIN/FEVER > 101 Iron Carb/Multivit/[place]/Folic Acid (Multivitamin W/Minerals) 1 tab PO DAILY [facility] Last Admin: 06/25/19 09:20 Dose: 1 tab Documented by: Lorazepam (Ativan) 2 mg IV Q4HP PRN PRN Reason: Seizures Last Admin: 06/25/19 09:29 Dose: 2 mg Documented by: Magnesium Hydroxide (Milk Of Magnesia) 30 ml PO HSP PRN PRN Reason: Constipation Ondansetron HCl (Zofran) 4 mg IV Q4-6HP PRN PRN Reason: Nausea And Vomiting Last Admin: 06/24/19 18:50 Dose: 4 mg Documented by: Oxycodone HCl (Roxicodone) 5 mg PO Q4HP PRN PRN Reason: PAIN LEVEL 3-6 Last Admin: 06/25/19 09:24 Dose: 5 mg Documented by: Phenobarbital (Phenobarbital) 120 mg PO DAILY@2000 [facility] Last Admin: 06/24/19 20:06 Dose: 120 mg Documented by: Polyethylene Glycol (Miralax) 17 gm PO DAILYP PRN PRN Reason: Constipation Potassium Chloride (Klor-Con) 40 meq PO DAILYP PRN PRN Reason: K+ < 3.5 Senna/Docusate Sodium (Senna Plus Tablet) 1 tab PO HS [facility] Last Admin: 06/24/19 20:07 Dose: 1 tab Documented by: Sodium Chloride (Saline Flush) 10 ml IV Q8 [facility] Last Admin: 06/25/19 05:19 Dose: Not Given Documented by: Thiamine HCl (Vitamin B1) 100 mg PO DAILY [facility] Last Admin: 06/25/19 09:20 Dose: 100 mg Documented by: Thyroid (Thyroid) 75 mg PO QDAY [facility] Last Admin: 06/25/19 07:27 Dose: 75 mg Documented by: Trazodone HCl (Desyrel) 50 mg PO HSP PRN PRN Reason: Insomnia Medical - PN: A/P - Time Spent With Patient Total time spent is greater than 50% in coordination of care (as documented) at patient's floor/unit and/or counseling patient: 25 - 35 minutes (1) Pelvic fracture Status: Acute Assessment and plan: * Generalized tonic-clonic seizure-continue phenobarbitone. No overnight seizure episode. Transfer to medical floor. Patient normally follows up with her neurologist at [place] * Pelvic fracture-multiple/traumatic. Orthopedic recommends nonweightbearing for 6 weeks. Also recommends outpatient follow-up. * Pain management on as needed opioids * History of COPD continue bronchodilators * Hypothyroidism continue thyroid supplements * Full code * Prophylaxis heparin Plan * Transfer to medical floor * Continue pain management * Patient remain nonweightbearing for 6 weeks * Prior medical condition management as above * Discharge planning, anticipate SNF transfer on discharge however patient wants to go home Current Visit: Yes Medical - PN: Qual - VTE Deep Vein Thrombosis/Pulmonary Embolism Present on Admission: No
[2019-06-25] MEDS ORDERED: MAGNESIUM HYDROXIDE 30 ML ORAL.SUSP PO PRN (10:12)
[2019-06-25] MEDS ORDERED: ACETAMINOPHEN 1,000 MG/100 ML BOTTLE IV PRN (10:12)
[2019-06-25] MEDS ORDERED: POLYETHYLENE GLYCOL 3350 17 GM PACKET PO PRN (10:12)
[2019-06-25] MEDS ORDERED: ONDANSETRON 4 MG/2 ML VIAL IV PRN (10:12)
[2019-06-25] MEDS ORDERED: POTASSIUM CHLORIDE 20 MEQ PACKET PO PRN (10:12)
[2019-06-25] MEDS ORDERED: MAGNESIUM SULFATE 2 GM/50 ML BAG IV PRN (10:12)
[2019-06-25] MEDS ORDERED: IPRATROPIUM/ALBUTEROL 3 ML AMPUL.NEB NEB PRN (10:12)
[2019-06-25] MEDS ORDERED: ACETAMINOPHEN 325 MG TABLET PO PRN (10:12)
[2019-06-25] MEDS ORDERED: ALBUTEROL SULFATE 1 PUFF INHALER INH PRN (10:12)
[2019-06-25] MEDS ORDERED: BISACODYL 10 MG SUPP.RECT PR PRN (10:12)
[2019-06-25] MEDS ORDERED: HYDROmorphone 2 MG/ML VIAL IV PRN (10:12)
--- NOTE | 2019-06-25 14:06 | Internal Med Progress Note ---
Medical - PN: Subj Patient information: Note initiated : 06/25/19 at 2:01 pm Service Date, if different from initiated Date: [] Patient: Naomi Iyer a 59 y/o F admitted on 06/23/19 for seizures. Chief Complaint: [] Interval history: Ms. Iyer is a 59 year old F with known history of seizure disorder who presents to ER with her after experiencing a seizure and fell resulting in injuries to her hip. The fall was unwitnessed however her found her on the chair. Patient does not recollect any events except that she woke up in a chair severe pain around the hip. Initial work-up was consistent with pelvic fractures on CT including right and left superior ramus to the acetabular wall along with left sacral ala. Orthopedics was consulted and advised conservative management. Biochemical profile was unremarkable. Phenobarbital level 17.6. Subsequently hospitalist service was consulted Patient has a known history of seizure disorder and intermittently experiences seizures. She follows up with urology at [place]. She also carries a complex history of head and neck 32 sessions of radiation 2017. She does not have a primary care physician at this time. Other than that patient denies headache, lightheadedness, chest pain, shortness of breath. She is verbal and appears nondistressed when not moving. Pain is exacerbated with minimal movement. She denies hematuria, unilateral weakness or incontinence. 06/24-patient experienced a tonic-clonic seizure lasting for couple of minutes with postictal phase. Continuing on phenobarbital. On pain management. Await orthopedic recommendations regarding pelvis fracture. Transfer to ICU for close neuro watch. Will consult neurology additional seizures noted for antiepileptic regimen. 06/25-no overnight seizure. Patient is a total nonweightbearing as per orthopedics. Case management coordinating SNF transfer. However patient wanting to go home. Discussed with patient and the high risk involved including recurrent falls and worsening pain if patient chooses to discharge home. Transfer to medical floor. and patient made aware of discharge plan. Case management coordinating. 06/26 - Constitutional Vitals: Vital Signs Temp Pulse Resp BP Pulse Ox 99.2 F H 80 14 137/82 98 06/25/19 05:00 06/25/19 05:01 06/25/19 05:00 06/25/19 05:01 06/25/19 09:25 Period Temp Pulse Resp BP Sys/Singleton Pulse Ox Last 24 Hr 98.4 F-100.2 F 70-100 14-22 110-137/74-92 89-100 Intake and Output 06/25/19 06/25/19 06/25/19 05:59 13:59 21:59 Output Total 150 200 Balance -150 -200 Intake & Output: Intake & Output 06/25/19 06/25/19 06/25/19 05:59 13:59 21:59 Output Total 150 200 Balance -150 -200 Output: Void Amount 150 200 Other: Meal Breakfast Percent of Meal Consumed 0% Feeding Ability Independent Urine Appearance Clear Clear Urine Color Dark Yellow Pale Urine Odor Normal Exam: General: Alert, Awake, No acute Distress Eyes/N/T: EOMI, Head/Neck: neck supple, CV: RRR, No murmurs, Pulm: Clear b/l, no wheezing/rhonchi/rales Abd: soft, nontender, +BS x4 Ext: no clubbing/cyanosis/edema Neuro: Alert, no focal deficits, moves all extremities, Skin: warm/dry Medical - PN: Obj Da - Labs CBC & Chem 7: 06/25/19 03:45 06/25/19 03:45 Labs: Abnormal Lab Results 06/25/19 06/25/19 06/24/19 03:45 03:45 03:42 RBC 3.26 L 3.51 L Hgb 10.0 L 10.9 L Hct 29.3 L 31.8 L Gran % Lymph % (Auto) Gran # Lymph # (Auto) Seg Neutrophils % 85 H Lymphocytes % 9 L 10 L RBC Morphology Abnorm A Hypochromasia 1+ A Glucose Calcium 8.3 L Lactate Dehydrogenase 275 H 06/23/19 06/23/19 19:12 19:12 RBC Hgb Hct Gran % 86.1 H Lymph % (Auto) 5.8 L Gran # 9.4 H Lymph # (Auto) 0.6 L Seg Neutrophils % Lymphocytes % RBC Morphology Hypochromasia Glucose 117 H Calcium Lactate Dehydrogenase Meds: Medications Acetaminophen (Tylenol) 650 mg PO Q4-6HP PRN PRN Reason: PAIN/FEVER > 101 Albuterol Sulfate (Ventolin) 2 puff INH Q6HP PRN PRN Reason: shortness of breath Albuterol/Ipratropium (Duoneb) 3 ml NEB Q4HP PRN PRN Reason: Shortness Of Breath Bisacodyl (Dulcolax) 10 mg [place] Q2-3DAYS PRN PRN Reason: Constipation Cetirizine HCl (Zyrtec) 10 mg PO DAILY [facility] Cyanocobalamin (Vitamin B-12) 1,000 mcg PO BID [facility] Stop: 06/27/19 09:01 Docusate Sodium (Colace) 100 mg PO BID [facility] Folic Acid (Folic Acid) 1 mg PO DAILY [facility] Heparin Sodium (Porcine) (Heparin) 5,000 unit SQ Q12 [facility] Hydromorphone HCl (Dilaudid) 0 mg IV Q4HP PRN PRN Reason: PAIN LEVEL > 6 Magnesium Sulfate (Magnesium Sulfate) 2 gm in 50 mls @ 50 mls/hr IV UD PRN PRN Reason: MG = or < 1.7 Sodium Chloride (Sodium Chloride 0.9%) 1,000 mls @ 50 mls/hr IV .Q20H [facility] Stop: 06/26/19 10:38 Acetaminophen (Ofirmev) 1,000 mg in 100 mls @ 200 mls/hr IV Q6HP PRN PRN Reason: PAIN/FEVER > 101 Iron Carb/Multivit/[place]/Folic Acid (Multivitamin W/Minerals) 1 tab PO DAILY [facility] Lorazepam (Ativan) 2 mg IV Q4HP PRN PRN Reason: Seizures Magnesium Hydroxide (Milk Of Magnesia) 30 ml PO HSP PRN PRN Reason: Constipation Ondansetron HCl (Zofran) 4 mg IV Q4-6HP PRN PRN Reason: Nausea And Vomiting Oxycodone HCl (Roxicodone) 5 mg PO Q4HP PRN PRN Reason: PAIN LEVEL 3-6 Phenobarbital (Phenobarbital) 120 mg PO DAILY@2000 [facility] Polyethylene Glycol (Miralax) 17 gm PO DAILYP PRN PRN Reason: Constipation Potassium Chloride (Klor-Con) 40 meq PO DAILYP PRN PRN Reason: K+ < 3.5 Senna/Docusate Sodium (Senna Plus Tablet) 1 tab PO HS [facility] Sodium Chloride (Saline Flush) 10 ml IV Q8 [facility] Last Admin: 06/25/19 13:52 Dose: Not Given Documented by: Thiamine HCl (Vitamin B1) 100 mg PO DAILY [facility] Thyroid (Thyroid) 75 mg PO DAILY@0500 [facility] Trazodone HCl (Desyrel) 50 mg PO HSP PRN PRN Reason: Insomnia Medical - PN: A/P - Time Spent With Patient Total time spent is greater than 50% in coordination of care (as documented) at patient's floor/unit and/or counseling patient: - Narrative A/P Narrative: A: *Generalized tonic-clonic seizure: continue home phenobarbitone -No overnight seizure episode. *Pelvic fracture-multiple/traumatic. Orthopedic recommends nonweightbearing for 6 weeks. Also recommends outpatient follow-up. *COPD ( ): continue bronchodilators *Hypothyroidism: continue thyroid supplements Plan: -Patient normally follows up with her neurologist at [place] -Continue pain management -Patient remain nonweightbearing for 6 weeks -Discharge planning, anticipate SNF transfer on discharge however patient wants to go home, not sure if this is possible, CM to evaluate -ppx: heparin full code Medical - PN: Qual - VTE Deep Vein Thrombosis/Pulmonary Embolism Present on Admission: No
[2019-06-25] MEDS: 0.9 % SODIUM CHLORIDE 1,000 ML IV SCH (15:36)
[2019-06-25] MEDS: PHENobarbital 30 MG TABLET PO SCH (20:05)
[2019-06-25] MEDS: SENNOSIDES/DOCUSATE SODIUM 1 TAB TABLET PO SCH (20:06)
[2019-06-25] MEDS: traZODone HCL 50 MG TABLET PO PRN (20:46)
[2019-06-26] MEDS: oxyCODONE HCL 5 MG TABLET PO PRN ×4 (00:15→23:47)
[2019-06-26] MEDS: THYROID, PORK 60 MG TABLET PO SCH (04:34)
[2019-06-26] MEDS: 0.9 % SODIUM CHLORIDE 10 ML SYRINGE IV SCH ×3 (04:34→20:03)
[2019-06-26] MEDS: 0.9 % SODIUM CHLORIDE 1,000 ML IV SCH (05:31)
[2019-06-26 06:38] LABS: Hematocrit 28.3 % (36.0-48.0); Hemoglobin 9.7 g/dL (12.0-15.0); Mean Cell Volume 90.1 fL (80.0-100.0); Mean Corpuscular HGB Conc 34.3 g/dL (31.0-36.0); Mean Platelet Volume 8.8 fL (7.4-10.4); Platelet Count 138 K/mcL (140-440); RBC 3.14 M/mcL (4.00-5.20)
[2019-06-26 07:04] LABS: ALT/SGPT 10 U/l (0-40); AST/SGOT 29 U/l (0-37); Albumin 3.4 gm/dL (3.2-5.2); Albumin/Globulin Ratio 1.2 (1.0-2.3); Alkaline Phosphatase 48 U/L (39-117); Bilirubin,Direct < 0.2 mg/dL (0.0-0.3); Bilirubin,Total 0.5 mg/dL (0.0-1.0); Blood Urea Nitrogen 12 mg/dl (8-23); Calcium 8.3 mg/dl (8.6-10.4); Carbon Dioxide 20 mmol/L (22-30); Chloride 101 mmol/L (96-108); Globulin 2.8 gm/dL (2.2-3.7); Glomerular Filtration Rate 94; Glucose 84 mg/dL (70-105); Lactate Dehydrogenase 349 U/L (94-250); Phosphorous 2.6 mg/dL (2.7-4.5); Triglycerides 198 mg/dl (<150); Uric Acid 5.5 mg/dL (2.5-8.0)
[2019-06-26 08:26] LABS: Eosinophils % (Manual) 9 % (0-7); Lymphocytes % 9 % (15-49); Monocytes % (Manual) 8 % (1-12); Platelet Estimate DECREASED (NORMAL); RBC Morphology NORMAL (NORMAL); Segmented Neutrophils % 74 % (38-78)
--- NOTE | 2019-06-26 08:30 | Internal Med Progress Note ---
Medical - PN: Subj Patient information: Note initiated : 06/26/19 at 8:28 am Service Date, if different from initiated Date: [] Patient: Naomi Iyer a 59 y/o F admitted on 06/23/19 for seizures. Chief Complaint: [] Interval history: Ms. Iyer is a 59 year old F with known history of seizure disorder who presents to ER with her after experiencing a seizure and fell resulting in injuries to her hip. The fall was unwitnessed however her found her on the chair. Patient does not recollect any events except that she woke up in a chair severe pain around the hip. Initial work-up was consistent with pelvic fractures on CT including right and left superior ramus to the acetabular wall along with left sacral ala. Orthopedics was consulted and advised conservative management. Biochemical profile was unremarkable. Phenobarbital level 17.6. Subsequently hospitalist service was consulted Patient has a known history of seizure disorder and intermittently experiences seizures. She follows up with urology at [facility]. She also carries a complex history of head and neck 32 sessions of radiation 2017. She does not have a primary care physician at this time. Other than that patient denies headache, lightheadedness, chest pain, shortness of breath. She is verbal and appears nondistressed when not moving. Pain is exacerbated with minimal movement. She denies hematuria, unilateral weakness or incontinence. 06/24-patient experienced a tonic-clonic seizure lasting for couple of minutes with postictal phase. Continuing on phenobarbital. On pain management. Await orthopedic recommendations regarding pelvis fracture. Transfer to ICU for close neuro watch. Will consult neurology additional seizures noted for antiepileptic regimen. 06/25-no overnight seizure. Patient is a nonweightbearing as per orthopedics. Case management coordinating SNF transfer. However patient wanting to go home. Discussed with patient and the high risk involved including recurrent falls and worsening pain if patient chooses to discharge home. Transfer to medical floor. and patient made aware of discharge plan. Case management coordinating. 06/26 Overnight events. Little difficult to sleep hospital bed per patient. Doing better with physical therapy. Orthopedic surgeon told her that she is nonweightbearing on the left but okay on the right. She stood with physical therapy today and Did better. She feels she is constipated Review of Systems: denies headache/fever/chills/nausea/vomiting/chest or abdominal pain/cough/dyspnea/diarrhea. Otherwise see above. - Constitutional Vitals: Vital Signs Temp Pulse Resp BP Pulse Ox 99.3 F H 75 20 137/85 94 06/26/19 08:25 06/26/19 04:32 06/26/19 08:25 06/26/19 08:25 06/26/19 08:25 Period Temp Pulse Resp BP Sys/Singleton Pulse Ox Last 24 Hr 98.7 F-99.9 F 75-89 16-20 118-147/77-91 94-98 Intake and Output 06/25/19 06/26/19 06/26/19 21:59 05:59 13:59 Intake Total 1600 550 Output Total 700 500 Balance 900 50 Weight 68.039 kg Intake & Output: Intake & Output 06/25/19 06/26/19 06/26/19 21:59 05:59 13:59 Intake Total 1600 550 Output Total 700 500 Balance 900 50 Weight 68.039 kg Intake: IV 1000 Oral 600 550 Output: Void Amount 700 500 Other: Meal Dinner Percent of Meal Consumed Refused Urine Appearance Clear Clear Urine Color Bright Yellow Dark Yellow Urine Odor Normal Exam: General: Alert, Awake, No acute Distress Eyes/N/T: EOMI, Head/Neck: neck supple, CV: RRR, No murmurs, Pulm: Clear b/l, no wheezing/rhonchi/rales Abd: soft, nontender, +BS x4 Ext: no clubbing/cyanosis/edema Neuro: Alert, no focal deficits, moves all extremities, Skin: warm/dry Medical - PN: Obj Da - Labs CBC & Chem 7: 06/26/19 04:55 06/26/19 04:55 Labs: Abnormal Lab Results 06/26/19 06/26/19 06/25/19 04:55 04:55 03:45 RBC 3.14 L Hgb 9.7 L Hct 28.3 L Plt Count 138 L Gran % Lymph % (Auto) Gran # Lymph # (Auto) Seg Neutrophils % Lymphocytes % 9 L Eosinophils % (Manual) 9 H RBC Morphology Hypochromasia Carbon Dioxide 20 L Glucose Calcium 8.3 L 8.3 L Phosphorus 2.6 L Lactate Dehydrogenase 349 H 275 H Triglycerides 198 H 06/25/19 06/24/19 06/23/19 03:45 03:42 19:12 RBC 3.26 L 3.51 L Hgb 10.0 L 10.9 L Hct 29.3 L 31.8 L Plt Count Gran % Lymph % (Auto) Gran # Lymph # (Auto) Seg Neutrophils % 85 H Lymphocytes % 9 L 10 L Eosinophils % (Manual) RBC Morphology Abnorm A Hypochromasia 1+ A Carbon Dioxide Glucose 117 H Calcium Phosphorus Lactate Dehydrogenase Triglycerides 06/23/19 19:12 RBC Hgb Hct Plt Count Gran % 86.1 H Lymph % (Auto) 5.8 L Gran # 9.4 H Lymph # (Auto) 0.6 L Seg Neutrophils % Lymphocytes % Eosinophils % (Manual) RBC Morphology Hypochromasia Carbon Dioxide Glucose Calcium Phosphorus Lactate Dehydrogenase Triglycerides Meds: Medications Acetaminophen (Tylenol) 650 mg PO Q4-6HP PRN PRN Reason: PAIN/FEVER > 101 Albuterol Sulfate (Ventolin) 2 puff INH Q6HP PRN PRN Reason: shortness of breath Albuterol/Ipratropium (Duoneb) 3 ml NEB Q4HP PRN PRN Reason: Shortness Of Breath Bisacodyl (Dulcolax) 10 mg [place] Q2-3DAYS PRN PRN Reason: Constipation Cetirizine HCl (Zyrtec) 10 mg PO DAILY [facility] Cyanocobalamin (Vitamin B-12) 1,000 mcg PO BID [facility] Stop: 06/27/19 09:01 Last Admin: 06/25/19 20:06 Dose: 1,000 mcg Documented by: Docusate Sodium (Colace) 100 mg PO BID [facility] Last Admin: 06/25/19 20:06 Dose: 100 mg Documented by: Folic Acid (Folic Acid) 1 mg PO DAILY [facility] Heparin Sodium (Porcine) (Heparin) 5,000 unit SQ Q12 [facility] Last Admin: 06/25/19 20:05 Dose: 5,000 unit Documented by: Hydromorphone HCl (Dilaudid) 0 mg IV Q4HP PRN PRN Reason: PAIN LEVEL > 6 Last Admin: 06/25/19 20:46 Dose: 0.5 mg Documented by: Magnesium Sulfate (Magnesium Sulfate) 2 gm in 50 mls @ 50 mls/hr IV UD PRN PRN Reason: MG = or < 1.7 Sodium Chloride (Sodium Chloride 0.9%) 1,000 mls @ 50 mls/hr IV .Q20H [facility] Stop: 06/26/19 10:38 Last Admin: 06/26/19 05:31 Dose: Not Given Documented by: Acetaminophen (Ofirmev) 1,000 mg in 100 mls @ 200 mls/hr IV Q6HP PRN PRN Reason: PAIN/FEVER > 101 Iron Carb/Multivit/[place]/Folic Acid (Multivitamin W/Minerals) 1 tab PO DAILY [facility] Lorazepam (Ativan) 2 mg IV Q4HP PRN PRN Reason: Seizures Last Admin: 06/25/19 15:38 Dose: 2 mg Documented by: Magnesium Hydroxide (Milk Of Magnesia) 30 ml PO HSP PRN PRN Reason: Constipation Ondansetron HCl (Zofran) 4 mg IV Q4-6HP PRN PRN Reason: Nausea And Vomiting Oxycodone HCl (Roxicodone) 5 mg PO Q4HP PRN PRN Reason: PAIN LEVEL 3-6 Last Admin: 06/26/19 04:34 Dose: 5 mg Documented by: Phenobarbital (Phenobarbital) 120 mg PO DAILY@2000 [facility] Last Admin: 06/25/19 20:05 Dose: 120 mg Documented by: Polyethylene Glycol (Miralax) 17 gm PO DAILYP PRN PRN Reason: Constipation Potassium Chloride (Klor-Con) 40 meq PO DAILYP PRN PRN Reason: K+ < 3.5 Senna/Docusate Sodium (Senna Plus Tablet) 1 tab PO HS [facility] Last Admin: 06/25/19 20:06 Dose: 1 tab Documented by: Sodium Chloride (Saline Flush) 10 ml IV Q8 [facility] Last Admin: 06/26/19 04:34 Dose: Not Given Documented by: Thiamine HCl (Vitamin B1) 100 mg PO DAILY [facility] Thyroid (Thyroid) 75 mg PO DAILY@0500 [facility] Last Admin: 06/26/19 04:34 Dose: 75 mg Documented by: Trazodone HCl (Desyrel) 50 mg PO HSP PRN PRN Reason: Insomnia Last Admin: 06/25/19 20:46 Dose: 50 mg Documented by: Medical - PN: A/P - Time Spent With Patient Total time spent is greater than 50% in coordination of care (as documented) at patient's floor/unit and/or counseling patient: - Narrative A/P Narrative: A: *Generalized tonic-clonic seizure: continue home phenobarbitone -No further episode *Pelvic fracture-multiple/traumatic. Orthopedic recommends nonweightbearing for 6 weeks. *Asthma: *Hypothyroidism: continue thyroid supplements *Constipation: Plan: -Patient normally follows up with her neurologist at [facility] -Continue pain management -Patient remain nonweightbearing for 6 weeks; f/u with ortho outpt -Discharge planning, anticipate SNF transfer on discharge -Bowel regimen -ppx: heparin d/c friday to SNF full code Medical - PN: Qual - VTE Deep Vein Thrombosis/Pulmonary Embolism Present on Admission: No
[2019-06-26] MEDS ORDERED: THYROID, PORK 60 MG TABLET PO SCH (09:00)
[2019-06-26] MEDS ORDERED: BISACODYL 10 MG SUPP.RECT PR PRN (10:36)
[2019-06-26] MEDS: FOLIC ACID 1 MG TABLET PO SCH (11:11)
[2019-06-26] MEDS: CYANOCOBALAMIN (VITAMIN B-12) 500 MCG TABLET PO SCH ×2 (11:11→20:02)
[2019-06-26] MEDS: DOCUSATE SODIUM 100 MG CAPSULE PO SCH ×2 (11:11→20:03)
[2019-06-26] MEDS: CETIRIZINE 10 MG TABLET PO SCH (11:12)
[2019-06-26] MEDS: HEPARIN 5,000 UNIT/ML VIAL SQ SCH ×2 (11:12→20:02)
[2019-06-26] MEDS: THIAMINE 100 MG TABLET PO SCH (11:12)
[2019-06-26] MEDS: MULTIVIT,THER IRON,CA,FA & MIN 1 TABLET PO SCH (11:12)
--- NOTE | 2019-06-26 13:07 | Discharge Summary ---
Medical - DS: Prov Patient information: Note initiated : 06/26/19 at 1:04 pm Service Date, if different from initiated Date: [] Patient: Naomi Iyer 59 y/o F admitted on 06/23/19 for seizures. Chief Complaint: [] Date of admission: 06/23/19 22:26 Discharge date: 06/28/19 Primary care physician: PCP No Consults: 06/23/19 Consult to Physician [CONS] Stat Comment: Consulting Provider: Louie Matamoros Reason For Exam: Physician to Consult Consult to Physician [CONS] Stat Comment: Consulting Provider: Mickey Nino Reason For Exam: Physician to Consult Medical - DS: Meds - Discharge Medications Active and Home Medications: Home Medications CBD Oil 1 appful .ROUTE DAILY 05/20/17 [History Confirmed 06/23/19 Last Taken Unknown] senna leaves (bulk) 1 each PO PRN PRN 02/12/18 [History Confirmed 06/23/19 Last Taken Unknown] albuterol sulfate 90 mcg/actuation breath activated powder inhaler 2 puff INHALATION Q6H PRN #1 each 03/10/18 [Rx Confirmed 06/23/19 Last Taken Unknown] albuterol sulfate HFA 90 mcg/actuation aerosol inhaler 2 puff INHALATION Q6H PRN #8.5 g 05/29/19 [Rx Confirmed 06/23/19 Last Taken Unknown] thyroid (pork) 60 mg tablet 75 mg PO QDAY 05/29/19 [History Confirmed 06/23/19 Last Taken Unknown] Cetirizine HCl [Zyrtec] 10 mg PO DAILY 06/23/19 [History Confirmed 06/23/19 Last Taken Unknown] PHENobarbital [Phenobarbital] 15 mg PO DAILY@199906/24/19 [History Confirmed 06/24/19 Last Taken Unknown] PHENobarbital [Phenobarbital] 100 mg PO DAILY@199906/24/19 [History Confirmed 06/24/19 Last Taken Unknown] Medical - DS: Hosp Hospital Course: Ms. Iyer is a 59 year old F with known history of seizure disorder who presents to ER with her after experiencing a seizure and fell resulting in injuries to her hip. The fall was unwitnessed however her found her on the chair. Patient does not recollect any events except that she woke up in a chair severe pain around the hip. Initial work-up was consistent with pelvic fractures on CT including right and left superior ramus to the acetabular wall along with left sacral ala. Orthopedics was consulted and advised conservative management. Biochemical profile was unremarkable. Phenobarbital level 17.6. Subsequently hospitalist service was consulted Patient has a known history of seizure disorder and intermittently experiences seizures. She follows up with urology at [facility]. She also carries a complex history of head and neck 32 sessions of radiation 2017. She does not have a primary care physician at this time. Other than that patient denies headache, lightheadedness, chest pain, shortness of breath. She is verbal and appears nondistressed when not moving. Pain is exacerbated with minimal movement. She denies hematuria, unilateral weakness or incontinence. 06/24-patient experienced a tonic-clonic seizure lasting for couple of minutes with postictal phase. Continuing on phenobarbital. On pain management. Await orthopedic recommendations regarding pelvis fracture. Transfer to ICU for close neuro watch. Will consult neurology additional seizures noted for antiepileptic regimen. 06/25-no overnight seizure. Patient is a nonweightbearing as per orthopedics. Case management coordinating SNF transfer. However patient wanting to go home. Discussed with patient and the high risk involved including recurrent falls and worsening pain if patient chooses to discharge home. Transfer to medical floor. and patient made aware of discharge plan. Case management coordinating. 06/26 Overnight events. Little difficult to sleep hospital bed per patient. Doing better with physical therapy. Orthopedic surgeon told her that she is nonweightbearing on the left but okay on the right. She stood with physical therapy today and Did better. She feels she is constipated 06/27 States feeling fine this morning. A bowel movement last night. She does have rib pain on the left where she fell. Which caused some discomfort when she coughs or takes a deep breath. 06/28 Feeling well. No new complaints stable for discharge. Discharge diagnosis: Pelvic fracture after seizure Secondary discharge diagnosis: Asthma hypothyroidism constipation - Time Spent with Patient Total time spent providing and/or coordinating discharge services: Greater than 30 minutes Medical - DS: Exam - Constitutional Vitals: Vital Signs Temp Pulse Pulse Resp BP BP Pulse Ox 06/26/19 12:00 99.2 F H 20 121/76 98 06/26/19 08:25 99.3 F H 20 137/85 94 06/26/19 08:00 20 06/26/19 04:32 99.3 F H 75 16 147/91 97 06/25/19 23:15 99.9 F H 85 16 124/79 96 06/25/19 20:18 99.3 F H 87 16 132/78 96 06/25/19 17:00 98.7 F 20 129/77 98 06/25/19 14:09 89 118/77 95 06/25/19 14:08 88 94 Intake and Output 06/25/19 06/26/19 06/26/19 21:59 05:59 13:59 Intake Total 1600 550 400 Output Total 700 500 Balance 900 50 400 Intake: IV 1000 Oral 600 550 400 Output: Void Amount 700 500 Other: Meal Dinner Breakfast Percent of Meal Consumed Refused 0% Feeding Ability Independent Urine Appearance Clear Clear Urine Color Bright Yellow Dark Yellow Urine Odor Normal Weight 68.039 kg Medical - DS: Data Labs on day of discharge: Labs from last 24 hours 06/26/19 06/26/19 04:55 04:55 WBC 5.0 RBC 3.14 L Hgb 9.7 L Hct 28.3 L MCV 90.1 MCH 30.9 MCHC 34.3 RDW 13.0 Plt Count 138 L MPV 8.8 Total Counted 100 Seg Neutrophils % 74 Band Neutrophils % Not Reportable Lymphocytes % 9 L Monocytes % (Manual) 8 Eosinophils % (Manual) 9 H Platelet Estimate Decreased RBC Morphology Normal Sodium 135 Potassium 3.8 Chloride 101 Carbon Dioxide 20 L Anion Gap 14.0 BUN 12 Creatinine 0.7 GFR Calculation 94 Glucose 84 Uric Acid 5.5 Calcium 8.3 L Phosphorus 2.6 L Magnesium 1.6 Total Bilirubin 0.5 Direct Bilirubin < 0.2 GGT 24 AST 29 ALT 10 Alkaline Phosphatase 48 Lactate Dehydrogenase 349 H Total Protein 6.2 Albumin 3.4 Globulin 2.8 Albumin/Globulin Ratio 1.2 Triglycerides 198 H Medical - DS: A/P - Patient/Caregiver Discharge Instructions Activity: other (. Physical therapy and weightbearing status per orthopedic surgery) Diet: Regular Diet Additional Instructions: Follow-up with neurologist 3 to 7 days - Follow up Plan Follow up with: No,PCP [Primary Care Provider] - Mickey Nino MD [Physician] - Disposition: [facility] SNF Prognosis: Undetermined Rehab Potential: Fair I certify that the patient requires SNF services: Yes Overall status at discharge: patient is progressing back to baseline Medical - DS: Qual - VTE Deep Vein Thrombosis/Pulmonary Embolism Present on Admission: No
[2019-06-26] MEDS: LORazepam 2 MG/ML VIAL IV PRN (18:48)
[2019-06-26] MEDS: PHENobarbital 30 MG TABLET PO SCH (20:02)
[2019-06-26] MEDS: traZODone HCL 50 MG TABLET PO PRN (20:03)
[2019-06-26] MEDS: SENNOSIDES/DOCUSATE SODIUM 1 TAB TABLET PO SCH (20:03)
[2019-06-27] MEDS: THYROID, PORK 60 MG TABLET PO SCH (04:24)
[2019-06-27] MEDS: 0.9 % SODIUM CHLORIDE 10 ML SYRINGE IV SCH ×3 (04:25→20:14)
[2019-06-27] MEDS: DOCUSATE SODIUM 100 MG CAPSULE PO SCH ×2 (08:25→20:10)
[2019-06-27] MEDS: oxyCODONE HCL 5 MG TABLET PO PRN ×3 (08:25→18:41)
[2019-06-27] MEDS: CYANOCOBALAMIN (VITAMIN B-12) 500 MCG TABLET PO SCH (08:25)
[2019-06-27] MEDS: HEPARIN 5,000 UNIT/ML VIAL SQ SCH ×2 (08:26→20:11)
[2019-06-27] MEDS: CETIRIZINE 10 MG TABLET PO SCH (08:26)
[2019-06-27] MEDS: THIAMINE 100 MG TABLET PO SCH (08:26)
[2019-06-27] MEDS: MULTIVIT,THER IRON,CA,FA & MIN 1 TABLET PO SCH (08:26)
[2019-06-27] MEDS: FOLIC ACID 1 MG TABLET PO SCH (08:26)
--- NOTE | 2019-06-27 09:39 | Internal Med Progress Note ---
Medical - PN: Subj Patient information: Note initiated : 06/27/19 at 9:37 am Service Date, if different from initiated Date: [] Patient: Naomi Iyer a 59 y/o F admitted on 06/23/19 for seizures. Chief Complaint: [] Interval history: Ms. Iyer is a 59 year old F with known history of seizure disorder who presents to ER with her after experiencing a seizure and fell resulting in injuries to her hip. The fall was unwitnessed however her found her on the chair. Patient does not recollect any events except that she woke up in a chair severe pain around the hip. Initial work-up was consistent with pelvic fractures on CT including right and left superior ramus to the acetabular wall along with left sacral ala. Orthopedics was consulted and advised conservative management. Biochemical profile was unremarkable. Phenobarbital level 17.6. Subsequently hospitalist service was consulted Patient has a known history of seizure disorder and intermittently experiences seizures. She follows up with urology at [place]. She also carries a complex history of head and neck 32 sessions of radiation 2017. She does not have a primary care physician at this time. Other than that patient denies headache, lightheadedness, chest pain, shortness of breath. She is verbal and appears nondistressed when not moving. Pain is exacerbated with minimal movement. She denies hematuria, unilateral weakness or incontinence. 06/24-patient experienced a tonic-clonic seizure lasting for couple of minutes with postictal phase. Continuing on phenobarbital. On pain management. Await orthopedic recommendations regarding pelvis fracture. Transfer to ICU for close neuro watch. Will consult neurology additional seizures noted for antiepileptic regimen. 06/25-no overnight seizure. Patient is a nonweightbearing as per orthopedics. Case management coordinating SNF transfer. However patient wanting to go home. Discussed with patient and the high risk involved including recurrent falls and worsening pain if patient chooses to discharge home. Transfer to medical floor. and patient made aware of discharge plan. Case management coordinating. 06/26 Overnight events. Little difficult to sleep hospital bed per patient. Doing better with physical therapy. Orthopedic surgeon told her that she is nonweightbearing on the left but okay on the right. She stood with physical therapy today and Did better. She feels she is constipated 06/27 States feeling fine this morning. A bowel movement last night. She does have rib pain on the left where she fell. Which caused some discomfort when she coughs or takes a deep breath. Review of Systems: denies headache/fever/chills/nausea/vomiting/ abdominal pain//dyspnea/diarrhea. Otherwise see above. - Constitutional Vitals: Vital Signs Temp Pulse Resp BP Pulse Ox 98.5 F 81 16 126/80 95 06/27/19 08:00 06/27/19 04:25 06/27/19 08:00 06/27/19 08:00 06/27/19 08:00 Period Temp Pulse Resp BP Sys/Singleton Pulse Ox Last 24 Hr 98.5 F-99.9 F 72-81 16-24 121-140/75-84 94-98 Intake and Output 06/26/19 06/27/19 06/27/19 21:59 05:59 13:59 Intake Total 170 700 Output Total 325 250 Balance -155 450 Weight 67.041 kg Intake & Output: Intake & Output 06/26/19 06/27/19 06/27/19 21:59 05:59 13:59 Intake Total 170 700 Output Total 325 250 Balance -155 450 Weight 67.041 kg Intake: IV 50 Oral 120 700 Output: Void Amount 325 250 Other: Percent of Meal Consumed 25% Urine Appearance Clear Clear Urine Color Bright Yellow Dark Yellow Urine Odor Normal Stool Size Moderate Stool Color Brown Stool Consistency Soft # Bowel Movements 2 # of times incontinent of 0 Bowels Exam: General: Alert, Awake, No acute Distress Eyes/N/T: EOMI, Head/Neck: neck supple, CV: RRR, No murmurs, Pulm: Clear b/l, no wheezing/rhonchi/rales. Tenderness to palpation left anterior ribs Abd: soft, nontender, +BS x4 Ext: no clubbing/cyanosis/edema Neuro: Alert, no focal deficits, moves all extremities, Skin: warm/dry Medical - PN: Obj Da - Labs CBC & Chem 7: 06/26/19 04:55 06/26/19 04:55 Labs: Abnormal Lab Results 06/26/19 06/26/19 06/25/19 04:55 04:55 03:45 RBC 3.14 L Hgb 9.7 L Hct 28.3 L Plt Count 138 L Lymphocytes % 9 L Eosinophils % (Manual) 9 H RBC Morphology Hypochromasia Carbon Dioxide 20 L Calcium 8.3 L 8.3 L Phosphorus 2.6 L Lactate Dehydrogenase 349 H 275 H Triglycerides 198 H 06/25/19 03:45 RBC 3.26 L Hgb 10.0 L Hct 29.3 L Plt Count Lymphocytes % 9 L Eosinophils % (Manual) RBC Morphology Abnorm A Hypochromasia 1+ A Carbon Dioxide Calcium Phosphorus Lactate Dehydrogenase Triglycerides Meds: Medications Acetaminophen (Tylenol) 650 mg PO Q4-6HP PRN PRN Reason: PAIN/FEVER > 101 Albuterol Sulfate (Ventolin) 2 puff INH Q6HP PRN PRN Reason: shortness of breath Albuterol/Ipratropium (Duoneb) 3 ml NEB Q4HP PRN PRN Reason: Shortness Of Breath Bisacodyl (Dulcolax) 10 mg SC DAILYP PRN PRN Reason: Constipation Cetirizine HCl (Zyrtec) 10 mg PO DAILY [facility] Last Admin: 06/27/19 08:26 Dose: 10 mg Documented by: Docusate Sodium (Colace) 100 mg PO BID [facility] Last Admin: 06/27/19 08:25 Dose: 100 mg Documented by: Folic Acid (Folic Acid) 1 mg PO DAILY [facility] Last Admin: 06/27/19 08:26 Dose: 1 mg Documented by: Heparin Sodium (Porcine) (Heparin) 5,000 unit SQ Q12 [facility] Last Admin: 06/27/19 08:26 Dose: 5,000 unit Documented by: Hydromorphone HCl (Dilaudid) 0 mg IV Q4HP PRN PRN Reason: PAIN LEVEL > 6 Last Admin: 06/25/19 20:46 Dose: 0.5 mg Documented by: Magnesium Sulfate (Magnesium Sulfate) 2 gm in 50 mls @ 50 mls/hr IV UD PRN PRN Reason: MG = or < 1.7 Last Infusion: 06/26/19 21:44 Dose: Infused Documented by: Acetaminophen (Ofirmev) 1,000 mg in 100 mls @ 200 mls/hr IV Q6HP PRN PRN Reason: PAIN/FEVER > 101 Iron Carb/Multivit/[place]/Folic Acid (Multivitamin W/Minerals) 1 tab PO DAILY [facility] Last Admin: 06/27/19 08:26 Dose: 1 tab Documented by: Lorazepam (Ativan) 2 mg IV Q4HP PRN PRN Reason: Seizures Last Admin: 06/26/19 18:48 Dose: 2 mg Documented by: Magnesium Hydroxide (Milk Of Magnesia) 30 ml PO HSP PRN PRN Reason: Constipation Ondansetron HCl (Zofran) 4 mg IV Q4-6HP PRN PRN Reason: Nausea And Vomiting Oxycodone HCl (Roxicodone) 5 mg PO Q4HP PRN PRN Reason: PAIN LEVEL 3-6 Last Admin: 06/27/19 08:25 Dose: 5 mg Documented by: Phenobarbital (Phenobarbital) 120 mg PO DAILY@2000 [facility] Last Admin: 06/26/19 20:02 Dose: 120 mg Documented by: Polyethylene Glycol (Miralax) 17 gm PO DAILYP PRN PRN Reason: Constipation Potassium Chloride (Klor-Con) 40 meq PO DAILYP PRN PRN Reason: K+ < 3.5 Senna/Docusate Sodium (Senna Plus Tablet) 1 tab PO HS [facility] Last Admin: 06/26/19 20:03 Dose: 1 tab Documented by: Sodium Chloride (Saline Flush) 10 ml IV Q8 [facility] Last Admin: 06/27/19 04:25 Dose: 10 ml Documented by: Thiamine HCl (Vitamin B1) 100 mg PO DAILY [facility] Last Admin: 06/27/19 08:26 Dose: 100 mg Documented by: Thyroid (Thyroid) 75 mg PO DAILY@0500 [facility] Last Admin: 06/27/19 04:24 Dose: 75 mg Documented by: Trazodone HCl (Desyrel) 50 mg PO HSP PRN PRN Reason: Insomnia Last Admin: 06/26/19 20:03 Dose: 50 mg Documented by: Medical - PN: A/P - Time Spent With Patient Total time spent is greater than 50% in coordination of care (as documented) at patient's floor/unit and/or counseling patient: - Narrative A/P Narrative: A: *Generalized tonic-clonic seizure: continue home phenobarbitone -No further episode *Pelvic fracture-multiple/traumatic. Orthopedic recommends nonweightbearing for 6 weeks to LLE. *Asthma: *Hypothyroidism: continue thyroid supplements *Constipation: resolved *left rib pain: related to fall Plan: -Patient normally follows up with her neurologist at [place] -Continue pain management -Patient remain nonweightbearing for 6 weeks to LLE; f/u with ortho outpt -Discharge planning, anticipate SNF transfer on discharge -Bowel regimen -rib series -ppx: heparin d/c friday to SNF full code Medical - PN: Qual - VTE Deep Vein Thrombosis/Pulmonary Embolism Present on Admission: No
--- NOTE | 2019-06-27 14:07 | XRay Report ---
CLINICAL INFORMATION: Trauma COMPARISON: 02/13/2017 FINDINGS: Heart size, mediastinum and pulmonary vessels are normal. Lungs are clear. No effusions or evidence of pneumothorax. Left ribs show no fracture or other osseous abnormality IMPRESSION: Negative Interpreted and Authenticated by: Garett Darden 06/27/19
[2019-06-27] MEDS: PHENobarbital 30 MG TABLET PO SCH (20:10)
[2019-06-27] MEDS: SENNOSIDES/DOCUSATE SODIUM 1 TAB TABLET PO SCH (20:10)
[2019-06-27] MEDS: traZODone HCL 50 MG TABLET PO PRN (21:49)
[2019-06-28] MEDS: oxyCODONE HCL 5 MG TABLET PO PRN ×3 (02:09→13:25)
[2019-06-28] MEDS: THYROID, PORK 60 MG TABLET PO SCH (05:10)
[2019-06-28] MEDS: 0.9 % SODIUM CHLORIDE 10 ML SYRINGE IV SCH ×2 (07:16→13:25)
[2019-06-28] MEDS: CETIRIZINE 10 MG TABLET PO SCH (07:25)
[2019-06-28] MEDS: MULTIVIT,THER IRON,CA,FA & MIN 1 TABLET PO SCH (07:25)
[2019-06-28] MEDS: DOCUSATE SODIUM 100 MG CAPSULE PO SCH (07:25)
[2019-06-28] MEDS: THIAMINE 100 MG TABLET PO SCH (07:25)
[2019-06-28] MEDS: FOLIC ACID 1 MG TABLET PO SCH (07:25)
[2019-06-28] MEDS: HEPARIN 5,000 UNIT/ML VIAL SQ SCH (07:26)
== END 2019-06-28 15:56 | DRG 536 ==
LOC: ED 18:16 → ICU 22:26 → MEDSUR 06-25 14:40
PROVIDERS: ADMIT Internal Medicine; ATTEND Internal Medicine